=== PATIENT | male | born 1960 | race Caucasian/White ===

== ENCOUNTER → 2016-09-16 | Day surgery (SDC) | payer OTHER ==
[~2016-09-16] VITALS: Ht 180.3 cm; Wt 97.5 kg
--- NOTE | 2016-09-16 10:20 | Operative Report ---
Operative/Inv Procedure Report Surgery Date: 09/16/16 Name of Procedure: Exam under anesthesia with drainage of perirectal abscess and partial fistulotomy with seton drain placement Pre-Operative Diagnosis: Perirectal abscess Post-Operative Diagnosis: Perirectal abscess with fistula Estimated Blood Loss: darby Surgeon/Managed Care Nurse: JORJE KINNEY JR, DO Anesthesia: local monitored anesthesi, block Monitors: Per routine Drains: Seton drain Specimens: 1. Abscess cavity 2. skin lesion ? Sebaceous cyst Complications: None Condition: Good Operative Indication: This is a 56-year-old gentleman with recurrent perirectal abscess. The abscess has occurred multiple times and usually spontaneously drains. When he came to visit me in the office I couldn't appreciate a scar but no clear external opening to a fistula. We decided to wait until his symptoms recurred tried examining him while having active symptoms. He develops symptoms again yesterday and we were able to schedule him for surgery today Operative/Procedure Note Note: Patient was taken into the operating room placed in the supine position on the operating table. IV sedation was initiated with the patient was comfortable he was placed into the lithotomy position in Demetrius stirrups. The gluteal cleft was taped in the abducted position and then the perineum was prepped and draped in usual fashion. An anal block was then performed using 0.5% Marcaine with epinephrine and a total of 30 mL was injected. After completing the block I gently dilated the anal canal placed a Fansler operating proctoscope into the anal canal. He had a spontaneously draining abscess in the left anterior anal margin approximately 4-5 cm from anal verge. I placed a fistula probe through this could not find the direction of the fistula tract. I excised some skin over the abscess and then was able to find a fistula tract on the medial edge of the incision. I placed a probe through this a travel towards the anal canal but would not emerge at the mucosal level. A 10 mL syringe with a large Jelco catheter was then inserted into the external opening of the fistula and I injected peroxide into the fistula tract. At this point I could see the peroxide bubbling at the dentate line through one of the crypts. This helped me to guide the tip of the fistula probe to the appropriate crypt. At this point a Silastic vessel loop was pulled through the tract to create a seton drain. The tails of the vessel loop was secured to each other with 2-0 silk ties. The anal was then cut to the appropriate length and the procedure was concluded. The perineum was cleansed and dried. Bacitracin ointment and a bulky gauze dressing was applied. The patient tolerated the procedure well. Was converted to supine position and then taken to the recovery area in good condition. At the end was operational needle sponges and measurements were accounted for. 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
== END ==
LOC: STS 07:00
DX: K61.1 Rectal abscess (principal); K60.3 Anal fistula; K60.4 Rectal fistula; K62.89 Other specified diseases of anus and rectum; K21.9 Gastro-esophageal reflux disease without esophagitis
CPT/HCPCS: 88305; J0690

== ENCOUNTER → 2016-11-15 | Day surgery (SDC) | payer OTHER ==
[~2016-11-15] VITALS: Ht 180.3 cm; Wt 97.1 kg
--- NOTE | 2016-11-15 15:26 | Operative Report ---
Operative/Inv Procedure Report Surgery Date: 11/15/16 Name of Procedure: Fistulotomy with drainage of perianal abscess Pre-Operative Diagnosis: Transsphincteric anal fistula Post-Operative Diagnosis: Transsphincteric anal fistula with associated abscess Estimated Blood Loss: scant Surgeon/Steam Service Inspector: JORJE KNINEY JR, DO Anesthesia: general endotracheal tube, block Monitors: Per routine Implants: None Drains: 1 inch iodoform packing Specimens: Tissue cultures Complications: None Condition: Good Operative Indication: This is a 56-year-old gentleman who was referred to me for evaluation of an anal fistula. He would have cyclical symptoms where he would get swelling and purulent drainage. After decompressing the wound was completely healed. And this happened multiple times. During one of his previous flares was taken to the operating room for exam under anesthesia. A seton drain was placed and he was allowed to recover from his infection. Operative/Procedure Note Note: Patient was taken into the operating room and on a stretcher adjacent to the operating room table underwent induction of general anesthesia and placement of endotracheal tube. The patient was then converted to the prone jackknife position taking great care to protect his airway and spine. His bony prominences were padded and then the gluteal cleft was taped in the abducted position. The perineum was prepped and draped in usual fashion. An anal block was then performed with 0.5% Marcaine with epinephrine. A total of 30 mL was used for the block. I gently dilated the anal canal and placed a Fansler operating proctoscope at the anal canal. Any residual mucus was irrigated and aspirated away. A fistula probe was tied to the seton drain which was then cut. The fistula probe was then pulled through the fistula tract so that the tip emerged in the anal canal. The internal opening or fistula was asked the intersphincteric space and the fistula did not appear to traverse the internal anal sphincter. As a pulled the fistula probe through the tract a large amount of purulent material was expressed. At this point I decided to lay open fistulotomy. The tissue was divided layer by layer and a small portion of the external anal sphincter was divided. I entered the abscess cavity which had a large amount of mucopurulent contents. There were some necrotic tissue and this was sent for tissue cultures. I irrigated out this cavity. The base of the cavity was then debrided with a curet. Hemostasis was partially achieved with electrocautery. At this point the skin edge was marsupialized to the base of the cavity with interrupted 2-0 and 3-0 Vicryl sutures. The cavity was then treated with Monsel's solution to assure hemostasis. A 1 inch Nu Gauze packing was then placed. The perineum was cleansed and dried and sterile bulky dressing was applied. At the end of this operational needle sponges and Schmidts were accounted for. The patient was converted back to supine position extubated in the operating room and taken the recovery area in good condition. Findings: Anal fistula with associated perirectal anal abscess Discharge Disposition: PACU
== END ==
LOC: STS 04:18
DX: K61.0 Anal abscess (principal)
CPT/HCPCS: 87070; 87075; 87147; J0690